=== PATIENT | female | born 1990 | race African-American/Black ===

== ENCOUNTER 2020-06-24 05:12 | Inpatient (IN) ==
[2020-06-24] MEDS ORDERED: PENICILLIN G POTASSIUM 6 MU in DEXTROSE 5% 250 ML IV STA (05:42)
[2020-06-24] MEDS ORDERED: OXYTOCIN 30 UNITS/500 ML BAG IV PRN ×3 (05:42→21:45)
[2020-06-24 06:06] LABS: Hematocrit (blood only) 32.4 % (37-47); Hemoglobin 11.3 g/dL (12.0-16.0); Mean Corpuscular Hemoglobin 27.9 pg (25-34); Mean Platelet Volume 10.3 fL (7.4-10.4); Platelet Count 194 K/uL (130-400); RDW Coefficient of Variation 13.5 % (11.5-14.5); RDW Standard Deviation 38.8 fL (36.4-46.3); Red Blood Count 4.05 M/uL (4.2-5.4); White Blood Count 13.07 K/uL (4.8-10.8)
[2020-06-24] MEDS: LACTATED RINGER'S 1,000 ML IV PRN ×2 (06:12→14:08)
[2020-06-24 06:33] LABS: Mean Corpuscular Hgb Conc 34.9 g/dL (32-36)
--- NOTE | 2020-06-24 08:52 | Obstetrical Progress Note ---
Date of Service June 24, 2020 Assessment & Plan Admission and Anticipated Discharge Date Admission Date: June 24, 2020 Subjective Met pt and reviewed PNC FHR; CAT1 Ctx; ; irregular Bedside sono; VT VE; 3/80/-2 GBS on antibx SROM: 04;30AM 06/24/20 will start Pitocin augmentation Results & Data ([facility]) Vital Signs (Past 12 Hours) Vital Signs Temp Pulse Resp BP 06/24/20 08:33 71 137/85 06/24/20 08:31 36.6 C 20 06/24/20 06:58 36.8 C 20 06/24/20 06:53 64 130/86 06/24/20 05:29 37.1 C 70 18 142/99 H 06/24/20 05:25 37.1 C 18
[2020-06-24] MEDS: PENICILLIN G POTASSIUM 3 MU in DEXTROSE 5% 100 ML IV PRN ×3 (09:48→18:00)
[2020-06-24] MEDS ORDERED: BUPIVACAINE 0.25% 30 ML VIAL ONE (13:12)
[2020-06-24] MEDS ORDERED: fentaNYL citrate 100 MCG/2 ML VIAL ONE (13:12)
[2020-06-24] MEDS ORDERED: ePHEDrine sulfate 50 MG/ML AMP ONE (13:12)
[2020-06-24] MEDS ORDERED: fentaNYL 2MCG/ML ROPIV 1.25MG/ML 100 ML BAG EPI ONE (13:13)
--- NOTE | 2020-06-24 13:34 | Anesthesiology Consultation ---
Date of Service June 24, 2020 Assessment & Plan ASA ASA2 Proposed Anesthesia Anesthesia Type: Labor Epidural Risk / Benefits Reviewed With: PT / POA / Parent / Guardian, Accepts Plan and Informed Consent Obtained History Height/Weight Height: 5 ft 6 in Weight: 90.718 kg Allergies Allergy/AdvReac Type Severity Reaction Status Date / Time No Known Drug Allergies Allergy Verified 09/08/19 15:30 Medications Home Medications Medication Instructions Recorded Confirmed Last Taken [id number] fumarate-FA 800 tab PO DAILY 06/24/20 06/24/20 06/23/20 [] albuterol sulfate [ProAir HFA] 108 mcg INHALATION DIRECTED PRN 06/24/20 06/24/20 Unknown fluticasone propionate [Flovent 1 puff INHALATION BID 06/24/20 06/24/20 06/23/20 HFA] valacyclovir 500 mg PO BID 06/24/20 06/24/20 06/23/20 Active Medications Generic Name Dose Route Start Last Admin Trade Name Freq PRN Reason Stop Dose Admin Lactated Ringer's 1,000 mls @ 125 mls/hr 06/24/20 05:42 06/24/20 13:10 Lr IV 06/26/20 05:41 999 mls/hr .Q8H PRN Infusion L&D Protocol Protocol Penicillin G Potassium 3 mu/ 106 mls @ 100 mls/hr 06/24/20 05:42 06/24/20 14:02 Dextrose IV 07/08/20 05:41 100 mls/hr Q4H PRN Administration Give until delivery Oxytocin 30 units in 500 mls @ 8 mls/hr 06/24/20 08:47 06/24/20 10:45 Pitocin IV 06/26/20 08:46 0.48 units/hr .Q24H PRN 8 mls/hr Labor Induction/Augmentation Titration Protocol 0.48 UNITS/HR Past Medical History Medical History ADD (attention deficit disorder) Anxiety Depression Former cigarette smoker Herpes genitalis in women No pertinent past medical history Exercise / Class Metabolic Activity II 4-5 Yardwork/Stairs/Walk up hill Past Family History Family History Grandmother (Maternal) Hypertension Hypercholesterolemia Father Prostate cancer Mother Thyroid disease Past Surgical History Surgical History History of colposcopy with cervical biopsy Hx of tonsillectomy S/P wisdom tooth extraction Past Anesthesia History No Hx of Anesthesia Complications and No Family Hx of Anesthesia Complications History of PONV No Hx of PONV and No Hx of Motion Sickness Social History Smoking Status: Former smoker Smoking cigarettes per day: 1 ppd Hx Alcohol Use: No Hx Substance Use: No Review of Systems denies fever/cough/ colds/ chest pain/ SOB/ ALEKSANDRA Constitutional: no fever and no chills Respiratory: no cough and no dyspnea denies ALEKSANDRA Cardiovascular: no chest pain and no dyspnea on exertion Physical Exam Vital Signs Last Vital Signs Temp 36.8 C 06/24/20 12:35 Pulse 80 06/24/20 14:02 Resp 20 06/24/20 12:35 BP 137/88 06/24/20 14:02 Pulse Ox 98 06/24/20 14:01 ENMT Mouth: no TMJ abnormality and no dentition abnormality Thyromental Distance: > or= 3.5 Finger Breadths Mallampati Class: II Neck neck extension not limited Respiratory normal respiratory effort; no respiratory distress Auscultation: lungs clear to auscultation bilaterally Cardiovascular Rate/Rhythm: regular rate and regular rhythm Neurologic moves all extremities Psychiatric Orientation: alert and oriented x 3 Testing Laboratory Results 06/24/20 05:52
[2020-06-24] MEDS ORDERED: ONDANSETRON INJ 2 MG/ML 2 ML VIAL IV PRN (14:05)
[2020-06-24] MEDS ORDERED: NALOXONE HCL 1 MG in SODIUM CHLORIDE 0.9% 1000ML 1,000 ML IV PRN (14:05)
[2020-06-24] MEDS ORDERED: fentaNYL 2MCG/ML ROPIV 1.25MG/ML 100 ML BAG EPI PRN (14:05)
[2020-06-24] MEDS ORDERED: NALOXONE HCL 0.4 MG/1 ML VIAL/CARP IV PRN (14:05)
[2020-06-24] MEDS ORDERED: DiphenhydrAMINE HCL 50 MG/ML VIAL IV PRN (14:05)
[2020-06-24] MEDS ORDERED: ePHEDrine sulfate 50 MG/ML AMP IV PRN (14:05)
--- NOTE | 2020-06-24 19:21 | Anesthesiology Progress Note ---
Date of Service June 24, 2020 Subjective bolused 5cc 2% lidocaine Physical Exam Vital Signs: Last Vital Signs Temp 37.1 C 06/24/20 19:04 Pulse 79 06/24/20 19:16 Resp 20 06/24/20 18:40 BP 151/90 H 06/24/20 19:10 Pulse Ox 100 06/24/20 19:16 Results & Data Medications Administered Lactated Ringer's (Lr) 1,000 mls @ 125 mls/hr IV .Q8H PRN; Protocol PRN Reason: L&D Protocol Stop: 06/26/20 05:41 Last Infusion: 06/24/20 18:01 Dose: 0 mls/hr Documented by: [id number] Admin: 06/24/20 14:08 Dose: 125 mls/hr Documented by: [id number] Infusion: 06/24/20 14:08 Dose: 125 mls/hr Documented by: [id number] Infusion: 06/24/20 13:10 Dose: 999 mls/hr Documented by: [id number] Infusion: 06/24/20 11:00 Dose: 125 mls/hr Documented by: [id number] Infusion: 06/24/20 09:58 Dose: 0 mls/hr Documented by: [id number] Admin: 06/24/20 06:12 Dose: 125 mls/hr Documented by: [id number] Penicillin G Potassium 3 mu/ (Dextrose) 106 mls @ 100 mls/hr IV Q4H PRN PRN Reason: Give until delivery Stop: 07/08/20 05:41 Last Admin: 06/24/20 18:00 Dose: 100 mls/hr Documented by: [id number] Infusion: 06/24/20 15:06 Dose: 100 mls/hr Documented by: [id number] Admin: 06/24/20 14:02 Dose: 100 mls/hr Documented by: [id number] Infusion: 06/24/20 10:52 Dose: 100 mls/hr Documented by: [id number] Admin: 06/24/20 09:48 Dose: 100 mls/hr Documented by: [id number] Oxytocin (Pitocin) 30 units in 500 mls @ 20 mls/hr IV .Q24H PRN; Protocol PRN Reason: Labor Induction/Augmentation Stop: 06/26/20 08:46 Last Titration: 06/24/20 18:01 Dose: 1.2 units/hr, 20 mls/hr Documented by: [id number] Titration: 06/24/20 16:45 Dose: 1.08 units/hr, 18 mls/hr Documented by: [id number] Titration: 06/24/20 16:15 Dose: 0.96 units/hr, 16 mls/hr Documented by: [id number] Titration: 06/24/20 15:05 Dose: 0.84 units/hr, 14 mls/hr Documented by: [id number] Titration: 06/24/20 12:15 Dose: 0.72 units/hr, 12 mls/hr Documented by: [id number] Titration: 06/24/20 11:30 Dose: 0.6 units/hr, 10 mls/hr Documented by: [id number] Titration: 06/24/20 10:45 Dose: 0.48 units/hr, 8 mls/hr Documented by: [id number] Titration: 06/24/20 10:15 Dose: 0.36 units/hr, 6 mls/hr Documented by: [id number] Titration: 06/24/20 09:45 Dose: 0.24 units/hr, 4 mls/hr Documented by: [id number] Admin: 06/24/20 09:12 Dose: 0.12 units/hr, 2 mls/hr Documented by: [id number] Cosigned by: [id number] Ondansetron HCl (Zofran) 4 mg IV Q6H PRN PRN Reason: Nausea And Vomiting Stop: 06/25/20 14:04 Last Admin: 06/24/20 19:02 Dose: 4 mg Documented by: [id number] Ropivacaine (Epidural (L&D)) 100 ml EPI PRN PRN; Protocol PRN Reason: Pain R/T Labor Stop: 06/25/20 14:04 Last Admin: 06/24/20 19:16 Dose: 100 ml Documented by: [id number] Cosigned by: [id number]
--- NOTE | 2020-06-24 21:10 | Anesthesiology Progress Note ---
Date of Service June 24, 2020 Anesthesia Post Procedure Vital Signs Vital Signs: Temp Pulse Resp BP Pulse Ox 06/24/20 21:07 93 H 91 06/24/20 21:06 82 98 06/24/20 21:02 99 H 129/64 06/24/20 21:01 102 H 93 06/24/20 21:00 111 H 94 06/24/20 20:56 99 H 96 06/24/20 20:51 107 H 95 06/24/20 20:47 97 H 94 06/24/20 20:46 105 H 96 06/24/20 20:41 116 H 83 L 06/24/20 20:40 113 H 131/77 06/24/20 20:36 117 H 96 06/24/20 20:34 106 H 93 06/24/20 20:31 97 H 80 L 06/24/20 20:29 111 H 93 06/24/20 20:26 92 H 123/59 L 97 06/24/20 20:21 105 H 99 06/24/20 20:16 111 H 99 06/24/20 20:11 96 H 96 06/24/20 20:10 104 H 153/95 H 06/24/20 20:06 90 99 06/24/20 20:01 88 100 06/24/20 20:00 20 06/24/20 19:56 95 H 97 06/24/20 19:54 77 149/88 H 06/24/20 19:51 75 98 06/24/20 19:46 86 97 06/24/20 19:41 72 96 06/24/20 19:39 71 143/86 H 06/24/20 19:36 72 98 06/24/20 19:31 75 99 06/24/20 19:30 18 06/24/20 19:27 79 93 06/24/20 19:26 73 99 06/24/20 19:21 76 99 06/24/20 19:16 79 100 06/24/20 19:11 79 100 06/24/20 19:10 78 151/90 H 06/24/20 19:06 81 100 06/24/20 19:04 37.1 C 06/24/20 19:01 94 H 100 06/24/20 18:56 122 H 92 06/24/20 18:55 75 147/84 H 06/24/20 18:51 85 98 08/10/20 18:50 88 94 06/24/20 18:46 74 98 06/24/20 18:41 79 99 06/24/20 18:40 36.8 C 80 20 148/81 H 06/24/20 18:36 76 100 06/24/20 18:31 83 100 06/24/20 18:26 79 100 06/24/20 18:24 71 133/81 06/24/20 18:23 91 H 93 06/24/20 18:21 73 98 06/24/20 18:16 75 98 06/24/20 18:11 74 98 06/24/20 18:09 71 140/87 06/24/20 18:06 75 97 06/24/20 18:01 72 98 06/24/20 17:56 71 138/85 97 06/24/20 17:51 71 97 06/24/20 17:46 69 97 06/24/20 17:41 68 97 06/24/20 17:39 68 138/84 06/24/20 17:36 70 98 06/24/20 17:31 67 98 06/24/20 17:26 70 98 06/24/20 17:25 65 120/75 06/24/20 17:21 68 98 06/24/20 17:16 68 99 06/24/20 17:11 66 98 06/24/20 17:09 68 135/87 06/24/20 17:06 66 98 06/24/20 17:01 66 98 06/24/20 16:56 63 98 06/24/20 16:54 63 144/86 H 06/24/20 16:51 55 L 100 06/24/20 16:46 62 100 06/24/20 16:41 58 L 100 06/24/20 16:39 36.8 C 66 20 145/82 H 06/24/20 16:38 87 93 06/24/20 16:36 92 H 99 06/24/20 16:31 74 100 06/24/20 16:26 65 100 06/24/20 16:24 73 131/84 06/24/20 16:21 64 99 06/24/20 16:16 64 99 06/24/20 16:11 68 99 06/24/20 16:10 66 137/86 06/24/20 16:06 68 99 08/10/20 16:01 69 99 06/24/20 15:56 66 154/89 H 99 06/24/20 15:51 79 98 06/24/20 15:46 75 99 06/24/20 15:41 70 97 06/24/20 15:39 80 128/89 06/24/20 15:36 70 96 06/24/20 15:31 72 97 06/24/20 15:26 72 96 06/24/20 15:25 72 122/83 06/24/20 15:21 76 96 06/24/20 15:16 77 96 06/24/20 15:11 81 96 06/24/20 15:10 74 119/59 L 06/24/20 15:06 71 96 06/24/20 15:05 73 94 06/24/20 15:01 73 97 06/24/20 14:59 74 94 06/24/20 14:56 75 97 06/24/20 14:51 76 95 06/24/20 14:50 75 123/79 06/24/20 14:46 80 96 06/24/20 14:45 77 135/68 06/24/20 14:41 70 96 06/24/20 14:40 68 124/77 06/24/20 14:36 70 95 06/24/20 14:35 72 128/60 06/24/20 14:31 68 131/79 98 06/24/20 14:26 70 96 06/24/20 14:25 71 129/81 06/24/20 14:21 65 97 06/24/20 14:20 68 131/79 06/24/20 14:16 66 135/75 97 06/24/20 14:11 86 97 06/24/20 14:08 71 137/77 06/24/20 14:06 73 98 06/24/20 14:05 73 136/71 06/24/20 14:02 80 137/88 06/24/20 14:01 73 98 06/24/20 13:59 72 132/81 06/24/20 13:56 73 138/86 99 06/24/20 13:53 36.8 C 75 20 145/89 H 06/24/20 13:51 77 149/92 H 99 06/24/20 13:46 80 99 06/24/20 13:41 80 99 06/24/20 13:34 74 99 06/24/20 13:29 70 99 06/24/20 13:24 59 L 98 06/24/20 13:19 62 98 06/24/20 12:35 36.8 C 62 20 134/89 06/24/20 11:26 36.8 C 72 20 138/86 06/24/20 10:30 36.8 C 20 06/24/20 10:16 64 128/87 06/24/20 10:15 16 06/24/20 09:16 72 132/84 06/24/20 08:33 71 137/85 06/24/20 08:31 36.6 C 20 06/24/20 06:58 36.8 C 06/24/20 06:53 64 130/86 06/24/20 05:29 37.1 C 70 18 142/99 H 06/24/20 05:25 37.1 C 18 Pain Intensity Bilateral Abdomen: Pain Intensity: 7 Transfer of Care Handoff Completed per policy Notes Mental Status: alert / awake / arousable and participated in evaluation Patient Amnestic to Procedure: Yes Nausea / Vomiting: adequately controlled Pain: adequately controlled Airway Patency, RR, SpO2: stable & adequate BP & HR: stable & adequate Hydration State: stable & adequate Anesthetic Complications: no major complications apparent and Pt Satisfied with anesthetic care
[2020-06-24] MEDS ORDERED: HYDROCORTISONE ACETATE 25 MG SUPP PR PRN (21:45)
[2020-06-24] MEDS ORDERED: IBUPROFEN 600 MG TAB PO PRN (21:45)
[2020-06-24] MEDS ORDERED: METHYLERGONOVINE MALEATE 0.2 MG/ML AMP IM ONE (21:45)
[2020-06-24] MEDS ORDERED: ACETAMINOPHEN 325 MG TAB PO PRN (21:45)
[2020-06-24] MEDS ORDERED: BENZOCAINE 20% AER SPR 82.5 GM CAN EXT PRN (21:45)
[2020-06-24] MEDS ORDERED: miSOPROStoL 200 MCG TAB PR ONE (21:45)
[2020-06-24] MEDS ORDERED: DIPHTHERIA/TETANUS/PERTUSSIS 0.5 ML SYR/VIAL IM ONE (21:45)
[2020-06-24] MEDS ORDERED: SUPERCREAM 0.870% 15 GM JAR EXT PRN (21:45)
[2020-06-24] MEDS ORDERED: OXYTOCIN 20 UNITS in LACTATED RINGER'S 1,000 ML IV SCH (22:00)
--- NOTE | 2020-06-25 00:54 | Delivery Summary ---
DATE OF OPERATION: 06/24/2020 The patient delivered a live infant with a right hand compound presentation. There was no nuchal cord. Infant was delivered, placed on mother's abdomen. Delayed cord clamp was performed after 1 minute. Cord blood was obtained. Placenta spontaneously delivered. Inspection of the perineum shows first-degree laceration which was repaired with Vicryl. Estimated blood loss is about 600 mL. The patient received Methergine and Cytotec for bleeding, which became stable. Banjo curette was used to evacuate any possible products from the uterus, this was because of the heavy bleeding. No additional products were obtained with the banjo curette. All instruments were removed from the vagina and uterus including retractors, sponges and needles accounted for x2. Baby and mother are doing well in recovery. I attest to the content of the Intraoperative Record and any orders documented therein. Any exception s are noted below.
[2020-06-25 06:47] LABS: Hematocrit (blood only) 29.5 % (37-47); Hemoglobin 9.6 g/dL (12.0-16.0); Mean Corpuscular Hemoglobin 26.5 pg (25-34); Mean Corpuscular Hgb Conc 32.5 g/dL (32-36); Mean Corpuscular Volume 81.5 fL (80-100); Mean Platelet Volume 10.5 fL (7.4-10.4); Platelet Count 162 K/uL (130-400); RDW Coefficient of Variation 13.6 % (11.5-14.5); RDW Standard Deviation 40.1 fL (36.4-46.3); Red Blood Count 3.62 M/uL (4.2-5.4); White Blood Count 17.25 K/uL (4.8-10.8)
[2020-06-25] MEDS: DOCUSATE SODIUM 100 MG CAP PO SCH ×2 (08:30→20:29)
[2020-06-25] MEDS: FERROUS SULFATE 325 MG TAB PO SCH (08:30)
[2020-06-25] MEDS: PRENATAL VITAMIN 1 TAB PO SCH (08:30)
--- NOTE | 2020-06-25 09:17 | Obstetrical Progress Note ---
Date of Service June 25, 2020 Assessment & Plan Admission and Anticipated Discharge Date Admission Date: June 24, 2020 Subjective Patient is seen and examined. She feels well, no complaints. Ambulating without dizziness Voiding without difficulty Tolerating regular diet with out N&V Bleeding is minimal No fever/ chills/ abdominal pain/ CP/ SOB/ cough/ sore throat/N&V/ Leg pain Breast feeding without problems Vital Signs Temp Pulse Pulse Resp BP BP Pulse Ox 06/25/20 08:40 36.5 C 76 18 125/83 06/25/20 05:55 37.7 C H 06/25/20 04:16 38.0 C H 18 148/49 H 06/25/20 00:13 37.4 C 18 131/87 06/24/20 23:04 38.0 C H 71 18 141/77 H 06/24/20 22:35 83 16 142/84 H 06/24/20 22:04 84 18 160/69 H 06/24/20 21:54 79 20 136/91 06/24/20 21:44 89 16 133/61 06/24/20 21:34 91 H 18 161/83 H 06/24/20 21:24 93 H 16 135/77 06/24/20 21:14 82 18 129/64 06/24/20 21:07 93 H 91 06/24/20 21:06 82 98 06/24/20 21:02 37.2 C 99 H 18 129/64 06/24/20 21:01 102 H 93 06/24/20 21:00 111 H 94 06/24/20 20:56 99 H 96 06/24/20 20:51 107 H 95 06/24/20 20:47 97 H 94 06/24/20 20:46 105 H 96 06/24/20 20:43 18 06/24/20 20:41 116 H 83 L 06/24/20 20:40 113 H 131/77 06/24/20 20:36 117 H 96 06/24/20 20:34 106 H 93 06/24/20 20:31 97 H 80 L 06/24/20 20:29 111 H 93 06/24/20 20:26 92 H 123/59 L 97 06/24/20 20:25 20 06/24/20 20:21 105 H 99 06/24/20 20:16 111 H 99 06/24/20 20:11 96 H 96 06/24/20 20:10 104 H 153/95 H 06/24/20 20:06 90 99 06/24/20 20:01 88 100 06/24/20 20:00 20 06/24/20 19:56 95 H 97 06/24/20 19:54 77 149/88 H 06/24/20 19:51 75 98 06/24/20 19:46 86 97 06/24/20 19:41 72 96 06/24/20 19:39 71 143/86 H 06/24/20 19:36 72 98 06/24/20 19:31 75 99 06/24/20 19:30 18 06/24/20 19:27 79 93 06/24/20 19:26 73 99 06/24/20 19:21 76 99 06/24/20 19:16 79 100 06/24/20 19:11 79 100 06/24/20 19:10 78 151/90 H 06/24/20 19:06 81 100 06/24/20 19:04 37.1 C 06/24/20 19:01 94 H 100 06/24/20 18:56 122 H 92 06/24/20 18:55 75 147/84 H 06/24/20 18:51 85 98 06/24/20 18:50 88 94 06/24/20 18:46 74 98 06/24/20 18:41 79 99 06/24/20 18:40 36.8 C 80 20 148/81 H 06/24/20 18:36 76 100 06/24/20 18:31 83 100 06/24/20 18:26 79 100 06/24/20 18:24 71 133/81 06/24/20 18:23 91 H 93 06/24/20 18:21 73 98 06/24/20 18:16 75 98 06/24/20 18:11 74 98 06/24/20 18:09 71 140/87 06/24/20 18:06 75 97 06/24/20 18:01 72 98 06/24/20 17:56 71 138/85 97 06/24/20 17:51 71 97 06/24/20 17:46 69 97 06/24/20 17:41 68 97 06/24/20 17:39 68 138/84 06/24/20 17:36 70 98 06/24/20 17:31 67 98 06/24/20 17:26 70 98 06/24/20 17:25 65 120/75 06/24/20 17:21 68 98 06/24/20 17:16 68 99 06/24/20 17:11 66 98 06/24/20 17:09 68 135/87 06/24/20 17:06 66 98 06/24/20 17:01 66 98 06/24/20 16:56 63 98 06/24/20 16:54 63 144/86 H 06/24/20 16:51 55 L 100 06/24/20 16:46 62 100 06/24/20 16:41 58 L 100 06/24/20 16:39 36.8 C 66 20 145/82 H 06/24/20 16:38 87 93 06/24/20 16:36 92 H 99 06/24/20 16:31 74 100 06/24/20 16:26 65 100 06/24/20 16:24 73 131/84 06/24/20 16:21 64 99 06/24/20 16:16 64 99 06/24/20 16:11 68 99 06/24/20 16:10 66 137/86 06/24/20 16:06 68 99 06/24/20 16:01 69 99 06/24/20 15:56 66 154/89 H 99 06/24/20 15:51 79 98 06/24/20 15:46 75 99 06/24/20 15:41 70 97 06/24/20 15:39 80 128/89 06/24/20 15:36 70 96 06/24/20 15:31 72 97 06/24/20 15:26 72 96 06/24/20 15:25 72 122/83 06/24/20 15:21 76 96 06/24/20 15:16 77 96 06/24/20 15:11 81 96 06/24/20 15:10 74 119/59 L 06/24/20 15:06 71 96 06/24/20 15:05 73 94 06/24/20 15:01 73 97 06/24/20 14:59 74 94 06/24/20 14:56 75 97 06/24/20 14:51 76 95 06/24/20 14:50 75 123/79 08/10/20 14:46 80 96 06/24/20 14:45 77 135/68 06/24/20 14:41 70 96 06/24/20 14:40 68 124/77 06/24/20 14:36 70 95 06/24/20 14:35 72 128/60 06/24/20 14:31 68 131/79 98 06/24/20 14:26 70 96 06/24/20 14:25 71 129/81 06/24/20 14:21 65 97 06/24/20 14:20 68 131/79 06/24/20 14:16 66 135/75 97 06/24/20 14:11 86 97 06/24/20 14:08 71 137/77 06/24/20 14:06 73 98 06/24/20 14:05 73 136/71 06/24/20 14:02 80 137/88 06/24/20 14:01 73 98 06/24/20 13:59 72 132/81 06/24/20 13:56 73 138/86 99 06/24/20 13:53 36.8 C 75 20 145/89 H 06/24/20 13:51 77 149/92 H 99 06/24/20 13:46 80 99 06/24/20 13:41 80 99 06/24/20 13:34 74 99 06/24/20 13:29 70 99 06/24/20 13:24 59 L 98 06/24/20 13:19 62 98 06/24/20 12:35 36.8 C 62 20 134/89 06/24/20 11:26 36.8 C 72 20 138/86 06/24/20 10:30 36.8 C 20 06/24/20 10:16 64 128/87 06/24/20 10:15 16 Intake and Output 06/24/20 06/25/20 06/25/20 22:59 06:59 14:59 Intake Total 1438.234 / 3068.001 504.167 / 3068.001 Output Total 1600 / 3400 900 / 3400 Balance -161.766 / -331.999 -395.833 / -331.999 Intake: IV 1438.234 / 3068.001 504.167 / 3068.001 Lr 1,000 ml @ 125 mls/hr IV . 745.834 / 1745.834 Q8H PRN Rx#:[id number] Pitocin 20 Units In Lr 1,000 ml 504.167 / 504.167 @ 125 mls/hr IV .Q8H1M VALERIA Rx# :[id number] PITOCIN 30 units In 500 ml @ 1. 480.400 / 500.000 2 UNITS/HR 20 mls/hr IV .Q24H PRN Rx#:[id number] Pfizerpen 3 Mu In D5 100 ml @ 212 / 318 100 mls/hr IV Q4H PRN Rx#: [id number] Output: Urine 600 / 2400 900 / 2400 Urine Amount (Catheter) 1000 / 1000 Straight 1000 / 1000 Lab Results 06/24/20 06/24/20 06/25/20 Range/Units 05:52 06:40 05:52 WBC 13.07 H 17.25 H (4.8-10.8) K/uL RBC 4.05 L 3.62 L (4.2-5.4) M/uL Hgb 11.3 L 9.6 L (12.0-16.0) g/dL Hct 32.4 L 29.5 L (37-47) % MCV 80.0 81.5 (80-100) fL MCH 27.9 26.5 (25-34) pg MCHC 34.9 32.5 (32-36) g/dL RDW Std Deviation 38.8 40.1 (36.4-46.3) fL RDW Coeff of Napoleon 13.5 13.6 (11.5-14.5) % Plt Count 194 162 (130-400) K/uL MPV 10.3 10.5 H (7.4-10.4) fL Amniotic Protein POS PE: General: Alert, orientedx3, NAD Abd: soft, NT, fundus firm, below Umbilicus Perineum intact, Lochia rubra minimal Ext; NT, no edema AP: 30 yo s/p , ppd# 1 VSS Afebrile doing well Had low grade temp after Rectal Cytotec 1000 mc given, afebrile now and no complaints Continue routine care All questions were answered D/C home tomorrow Results & Data ([facility]) Vital Signs (Past 12 Hours) Vital Signs Temp Pulse Pulse Resp BP BP 06/25/20 08:40 36.5 C 76 18 125/83 06/25/20 05:55 37.7 C H 06/25/20 04:16 38.0 C H 18 148/49 H 06/25/20 00:13 37.4 C 18 131/87 06/24/20 23:04 38.0 C H 71 18 141/77 H 06/24/20 22:35 83 16 142/84 H 06/24/20 22:04 84 18 160/69 H 06/24/20 21:54 79 20 136/91 06/24/20 21:44 89 16 133/61 06/24/20 21:34 91 H 18 161/83 H 06/24/20 21:24 93 H 16 135/77
[2020-06-25] MEDS ORDERED: bisacodyL 5 MG TABEC PO SCH (20:00)
[2020-06-26] MEDS ORDERED: bisacodyL 10 MG SUPP PR PRN (06:00)
[2020-06-26 07:13] LABS: Basophils # (auto) 0.01 K/uL (0-0.2); Basophils % (auto) 0.1 %; Eosinophils % (auto) 2.2 %; Hematocrit (blood only) 26.8 % (37-47); Hemoglobin 9.1 g/dL (12.0-16.0); Immature Granulocytes # (auto) 0.05 K/uL (0.00-0.02); Immature Granulocytes % (auto) 0.4 %; Lymphocytes # (auto) 3.23 K/uL (1.2-3.4); Lymphocytes % (auto) 23.8 %; Mean Corpuscular Hemoglobin 27.5 pg (25-34); Mean Platelet Volume 10.3 fL (7.4-10.4); Monocytes # (auto) 0.75 K/uL (0.11-0.59); Monocytes % (auto) 5.5 %; Neutrophils # (auto) 9.23 K/uL (1.4-6.5); Platelet Count 183 K/uL (130-400); RDW Coefficient of Variation 13.9 % (11.5-14.5); RDW Standard Deviation 40.9 fL (36.4-46.3); Red Blood Count 3.31 M/uL (4.2-5.4); White Blood Count 13.57 K/uL (4.8-10.8)
--- NOTE | 2020-06-26 08:38 | Obstetrical Progress Note ---
Date of Service June 26, 2020 Assessment & Plan Admission and Anticipated Discharge Date Admission Date: June 24, 2020 Physical Exam Physical Exam: abdomen soft and non tender no calf tenderness ambulating well vaginal bleeding scant hgb 9.1 Results & Data ([facility]) Vital Signs (Past 12 Hours) Vital Signs Temp Pulse Resp BP Pulse Ox 06/25/20 23:55 36.7 C 83 16 128/85 98
[2020-06-26] MEDS: FERROUS SULFATE 325 MG TAB PO SCH (08:57)
[2020-06-26] MEDS: DOCUSATE SODIUM 100 MG CAP PO SCH (08:57)
[2020-06-26] MEDS: PRENATAL VITAMIN 1 TAB PO SCH (08:57)
== END 2020-06-26 13:50 | disposition home or self-care (01) | DRG 807 ==
LOC: OPB 05:12 → 4S1 05:15 → 4S2 06-25 00:05